=== PATIENT | female | born 1985 | race Caucasian/White ===

== ENCOUNTER 2025-04-30 07:57 | Day surgery (SDC) | payer OTHER ==
[~2025-04-30] VITALS: Ht 165.1 cm; Wt 64.0 kg
[~2025-04-30 07:57] MED LIST: ALDACTONE50 MG PO; CEFAZOLIN SODIUM 2 GM in SODIUM CHLORIDE 0.9% 100 ML IV SCH; DERMACINRX FOL PO; IBLOOD GLUCOSE TEST STRIP 1 EA TEST VI PRN; LACTATED RINGER'S 1,000 ML IV SCH; LIDOCAINE HCL 1% 5 ML SDV INJ ONE; MAGNESIUM200 MG PO; MULTI VITAMIN1 EACH PO
[2025-04-30 08:20] VITALS: BP 111/76
[2025-04-30] MEDS ORDERED: [UNRECOGNIZED DRUG - OTHER] TOP (08:20)
[2025-04-30] MEDS ORDERED: fentaNYL citrate 100 MCG/2 ML VIAL ONE (08:58)
[2025-04-30] MEDS ORDERED: LIDOCAINE HCL 2% 5 ML SDV ONE (08:58)
[2025-04-30] MEDS ORDERED: ROCURONIUM BROMIDE 50 MG/5 ML SYR ONE (08:58)
[2025-04-30] MEDS ORDERED: ACETAMINOPHEN 1,000 MG/100 ML VIAL ONE (09:02)
[2025-04-30] MEDS ORDERED: DEXAMETHASONE SOD PHOS 4 MG/ML VIAL ONE (09:33)
[2025-04-30] MEDS ORDERED: SUGAMMADEX SODIUM 200 MG/2 ML ML ONE (09:33)
[2025-04-30] MEDS ORDERED: KETOROLAC TROMETHAMINE 30 MG/ML VIAL ONE (09:33)
[2025-04-30] MEDS ORDERED: NALOXONE HCL 0.4 MG SYR IV PRN ×2 (10:30→16:00)
[2025-04-30] MEDS ORDERED: HYDROCODONE/ACETA 5/325 TAB PO PRN (10:30)
[2025-04-30 10:50] VITALS: BP 107/77
--- NOTE | 2025-04-30 11:07 | NUR ---
1055: PATIENT BACK IN DAY SURGERY ROOM FROM PACU. VS CHECKED. BILATEAL GROIN INCISIONS CHECKED. SMALL AMOUNT OF RED DRAINAGE FROM EACH SITE. SLIGHTLY MORE RED DRAINAGE FROM LEFT SIDE THAN RIGHT. PERIPAD IN PLACE WITH SMALL AMOUNT OF DRAINAGE. SCDs ON. IV SITE WNL. DENIES PAIN. PATIENT STATES THE LEFT SIDE FEELS SORE. PATIENT TOLERATING WATER. REQUESTED CHICKEN BROTH. CHICKEN BROTH GIVEN WITH CRACKERS. ICE WATER REFILLED. CALL LIGHT WITHIN REACH.
--- NOTE | 2025-04-30 11:42 | NUR ---
1130-PT AMBULATES TO RESTROOM. GAIT STEADY AND TOLERATED WELL. PT ABLE TO VOID 100ML OF URINE. 1135-PT BACK TO ROOM. NO OTHER NEEDS AT THIS TIME. CALL LIGHT WITHIN REACH.
[2025-04-30 11:48] VITALS: BP 104/70
--- NOTE | 2025-04-30 13:44 | NUR ---
04/30/25 1344 Stacia Saucedo 1013- PT PRESENTS TO PACU, SEMI LOGAN POSITION. BREATHING EVEN AND NON LABORED, O2 AT 6L PER MASK. LR INFUSING TO LFA IV. ABD SOFT, NON DISTENDED. RAKESH PAD IN PLACE, NO BLEEDING. ALL MONITORS IN PLACE. 1015- PT SWALLOWING AND PUSHING AT OPA, KEEPS EYES CLOSED, BUT OPENS MOUTH TO REMOVE OPA. O2 LEFT IN PLACE, BREATHING EVEN AND NON LABORED. 1022- PT MOVED TO ROOM AIR, DENIES PAIN OR NAUSEA. 1030- PT CONVERSING WITH STAFF, NO SIGNS OF DISTRESS. 1040- PT SAT UP IN BED, ICE WATER PROVIDED, TOLERATING WELL. 1048- PT BACK TO DAY SURGERY, DROWSY BUT AWAKE AND ORIENTED. NO SIGNS OF DISTRESS. REPORT TO SONG LOVE AT BEDSIDE, CARE OF PT TURNED OVER AT THIS TIME.
--- NOTE | 2025-04-30 14:13 | NUR ---
1145: PATIENT BLADDER SCANNED POST VOID. SCAN STATES 0 ML IN BLADDER. PATIENT STATES SHE FEELS THOUGH SHE EMPTIED HER BLADDER COMPLETELY AND WITHOUT DIFFICULTY. 1148: VS CHECKED. RATES PAIN 1/10 WHILE IN BED. STATES LEFT SIDE INCISION HAS MORE PAIN THAT RIGHT SIDE. SMALL AMOUNT OF RED DRAINAGE ON PERIPAD. PATIENT GETTING DRESSED. 1205: DISCHARGE INSTRUCTIONS GIVEN TO PATIENT. IV DC'D WNL. TIP INTACT. DRESSING APPLIED. WAITING FOR RIDE TO ARRIVE. CALL LIGHT WITHIN REACH. 1238: PATIENT DISCHARGED TO HOME VIA WHEELCHAIR WITH .
[2025-04-30] MEDS ORDERED: MIDAZOLAM HCL 2 MG/2 ML VIAL IV PRN (16:00)
[2025-04-30] MEDS ORDERED: HYDROmorphone HCL 1 MG/ML SYR IV PRN (16:00)
[2025-04-30] MEDS ORDERED: fentaNYL citrate 50 MCG/ML SDV IV PRN (16:00)
== END 2025-04-30 12:38 | disposition home or self-care (01) ==
LOC: DS 07:57 → EDBD 10:00 → DS 12:38
PROVIDERS: ATTEND Obstetrics & Gynecology
PROC: 0TSD0ZZ Reposition Urethra, Open Approach (ICD-10-PCS; principal; 2025-04-30 10:00)
DX: N39.3 Stress incontinence (female) (male) (principal); N36.41 Hypermobility of urethra; Z79.899 Other long term (current) drug therapy
CPT/HCPCS: 00860; C1771; J0131; J0688; J1100; J1885; J2003; J2405; J2704; J3010; J3490; J7121